=== PATIENT | female | born 1970 | race Caucasian/White ===

== ENCOUNTER 2019-11-29 20:05 | Emergency (ER) | payer BC, OTHER ==
[2019-11-29] MEDS ORDERED: Silver Sulfadiazine 1% Crm 50 GM Tube TOP ONE (20:21)
[2019-11-29] MEDS ORDERED: Ketorolac 60 MG/2 ML SDV IM ONE (20:21)
--- NOTE | 2019-11-29 20:27 | EDM.PDOC ---
ED HPI GENERAL MEDICAL PROBLEM - General Chief Complaint: Burn Stated Complaint: BURNED LEFT HAND Time Seen by Provider: 11/29/19 20:09 Source of Information: Reports: Patient, RN Notes Reviewed History Limitations: Reports: No Limitations - History of Present Illness INITIAL COMMENTS - FREE TEXT/NARRATIVE: Patient is a 49-year-old female who presents to the ED for evaluation of a burn on her left hand/thumb. Patient states she was making supper with her [employer] pot pressure cooker and was releasing the lid, when some of the food/soup foamed or steamed up and ended up burning the thumb on her left hand. This does involve most of the thumb, anteriorly and posteriorly. There is a small blister that is roughly dime sized noted to the posterior surface of the thumb between the PIP and DIP joint, this is intact. No other blisters noted on any other surface Patient did not take any pain medication for this, and decided to come to the ER for management. Patient complains of no other sick-like symptoms at this time. Patient did present to the ER with an ice pack in place. Left Finger-Thumb Pain Score (Numeric/FACES): 10 - Related Data Allergies Allergy/AdvReac Type Severity Reaction Status Date / Time No Known Allergies Allergy Verified 11/29/19 20:19 Home Meds: Home Meds . [No Known Home Meds] 11/29/19 [History] Past Medical History - Past Health History Medical/Surgical History: Denies Medical/Surgical History ED ROS GENERAL - Review of Systems Review Of Systems: Comprehensive ROS is negative, except as noted in HPI. ED EXAM, BURN/SMOKE INHALATION - Physical Exam Exam: See Below Exam Limited By: No Limitations General Appearance: Alert, WD/WN, No Apparent Distress Mouth/Throat: No Symptoms Reported Head: No Symptoms Neck: No Symptoms Respiratory: No Respiratory Distress, Lungs Clear, Normal Breath Sounds, No Accessory Muscle Use, Chest Non-Tender Cardiovascular: Normal Peripheral Pulses, Regular Rate, Rhythm, No Murmur Peripheral Pulses: 3+: Radial (L), Radial (R) Extremities: Normal Range of Motion, Normal Capillary Refill, Redness (To entire thumb surface. Most of this is visible on the posterior aspect. Patient is able to move her thumb in all range of motion with little to no difficulty.) Neurological: Alert, Oriented, Normal Cognition, No Motor/Sensory Deficits Psychiatric: Normal Affect, Normal Mood Skin Exam: Warm, Dry, Intact, Normal Color, No Rash, Erythema (To the left thumb , this does extend to about the wrist joint, it does appear as if the patient dipped her thumb in hot liquid, for distribution pattern. There is a roughly dime sized blister noted to the posterior surface of the left thumb between the PIP and DIP joint, this is intact.) Course - Vital Signs Last Recorded V/S: Last Vital Signs Temp 97.7 F 11/29/19 20:16 Pulse 108 H 11/29/19 20:16 Resp 20 11/29/19 20:16 BP 144/90 H 11/29/19 20:16 Pulse Ox 97 11/29/19 20:16 - Orders/Labs/Meds Orders: Active Orders 24 hr Category Date Time Status Ketorolac [Toradol] Med 11/29/19 20:21 Once 60 mg IM ONETIME ONE Silver Sulfadiazine [Silvadene 1% Cream 50 GM] Med 11/29/19 20:21 Once 1 gm TOP ONETIME ONE - Re-Assessments/Exams Free Text/Narrative Re-Assessment/Exam: 11/29/19 20:27 Patient presents to the ED for the burn on her left hand/thumb. Patient will be given a injection of Toradol for pain management, and will have Silvadene applied to the burn area have it bandaged appropriately and discharge patient home with general recommendations. Departure - Departure Time of Disposition: 20:27 Disposition: Home, Self-Care 01 Condition: Good Clinical Impression: Burn of thumb Qualifiers: Encounter type: initial encounter Laterality: left Burn degree: partial thickness (2nd degree) Qualified Code(s): T23.212A - Burn of second degree of left thumb (nail), initial encounter - Discharge Information *PRESCRIPTION DRUG MONITORING PROGRAM REVIEWED*: No *COPY OF PRESCRIPTION DRUG MONITORING REPORT IN PATIENT DEIDRA: No Instructions: Burn Care, Adult, [id number] Referrals: PCP,None [Primary Care Provider] - Additional Instructions: You were evaluated in the ER today regarding the burn on your left thumb. You were given an injection of an anti-inflammatory to help with the pain, and your wounds will be dressed with Silvadene cream for further management. Please apply this liberally to the areas 2 times a day to help promote healing. You may keep this area bandaged so you do not remove the cream inadvertently. You might want to wear a rubber type glove to help keep the bandage and cream in place. You may keep an ice pack to the area as tolerated to help provide further pain relief. You may take 600 mg ibuprofen every 6 hours for further pain relief. Do not exceed 3200 mg ibuprofen in a 24-hour time span. The blister on the surface of your thumb will likely rupture, this is okay, but do not rupture it by yourself as it should rupture on it's own. Recommend you follow-up with a family practice provider of your choice, please call our clinic [phone]. This would be best if your burn was re-evaluated within the next few days. Please return to the ER at any time however if symptoms change or worsen. Sepsis Event Note - Evaluation Sepsis Screening Result: No Definite Risk - Focused Exam Vital Signs: Vital Signs Temp Pulse Resp BP Pulse Ox 11/29/19 20:16 97.7 F 108 H 20 144/90 H 97 Date Exam was Performed: 11/29/19 Time Exam was Performed: 20:22 - My Orders Last 24 Hours: My Active Orders 11/29/19 20:21 Ketorolac [Toradol] 60 mg IM ONETIME ONE Silver Sulfadiazine [Silvadene 1% Cream 50 GM] 1 gm TOP ONETIME ONE - Assessment/Plan Last 24 Hours: My Active Orders 11/29/19 20:21 Ketorolac [Toradol] 60 mg IM ONETIME ONE Silver Sulfadiazine [Silvadene 1% Cream 50 GM] 1 gm TOP ONETIME ONE
== END 2019-11-29 20:53 | disposition home or self-care (01) ==
LOC: JD.ED 20:05
DX: T23.212A Burn of second degree of left thumb (nail), initial encounter (principal); X15.8XXA Contact with other hot household appliances, initial encounter
CPT/HCPCS: 16020; 96372; 99283; A9270; J1885

== ENCOUNTER 2022-10-08 12:14 | Emergency (ER) | payer BC, OTHER | END 2022-10-08 14:56 | disposition home or self-care (01) | LOC: JD.ED 12:14 | DX: I49.1 Atrial premature depolarization (principal) | CPT/HCPCS: 36415; 80053; 83735; 83880; 84443; 84484; 85025; 93005; 93010; 93225; 93226; 99284; 99285 ==